=== PATIENT | male | born 1945 | race Caucasian/White ===

== ENCOUNTER 2022-10-25 16:03 | Outpatient (RCR) | payer MEDICARE, BC, SELFPAY ==
--- NOTE | 2022-10-25 17:36 | PT.OPE ---
PT Ruben Outpatient Eval PT [facility] Outpatient Eval Start: 10/25/22 16:22 Freq: Status: Active Protocol: Document 10/25/22 17:19 JUSTICE (Rec: 10/25/22 17:33 JUSTICE Desktop) E-signed By Pavan Duenas, PT, ATC Physical Therapy Outpatient Evaluation Insurance Information Insurance Name Medicare B Medical Diagnosis L knee OA Pre-op TKA Treating Diagnosis L knee pain, decreased strength, ROM and function. Referring MD Harding Subjective Subjective Scheduled for L TKA with Dr. Harding at [facility] on 11/01/22. 3-4 year history of L knee pain and stiffness. The past few months have been very debilitating creating pain and discomfort with most waking hours and activity. 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 Xrays identified advanced arthritis in the involved knee, significant worsening over the past few years. His functional ability is severely affected due to the pain and stiffness. He is anxious for the upcoming procedure and understands the healing-rehab schedule involved following the procedure. Primary Functional Limitations Walking Sustained standing squatting kneeling golfing Plan of Care Rehabilitation Potential Good Physical Therapy Goals 1. To demonstrate correct performance with walker use, stair ascent and descent and performance with his HEP for the TKA following his first visit in therapy. 2. To understand methods for pain control following the procedure using ice or the cooling machine, pain medication, rest and elevation . Coordination/Communication With Referral Source Frequency/Duration 1 visit prior to TKA 16 visits following TKA procedure. 1-2x per week for 12-16 weeks Patient Will Be Discharged From Therapy Independent w/HEP, Independently Progressing Evaluation Billing Untimed Code Treatment Minutes 30 PT Eval No Charge No Complexity Low Certification Information Initial Certification Date 10/25/22 Ending Certification Date 01/25/23 Provider Signature Shows Agreement With POC & Medical Necessity Physician Signature & Date Requested Please Sign/Date Here Physician Comment/Change : Physician NPI Number #
== END 2023-02-17 23:59 | disposition home or self-care (01) ==
PROVIDERS: PCP Surgery; Visit Provider Orthopaedic Surgery Sports Medicine
DX: M17.12 Unilateral primary osteoarthritis, left knee (principal); Z96.652 Presence of left artificial knee joint; M25.562 Pain in left knee; Z74.09 Other reduced mobility; Z51.89 Encounter for other specified aftercare
CPT/HCPCS: 97110; 97161

== ENCOUNTER 2023-07-11 10:24 | Day surgery (SDC) | payer MEDICARE, BC, SELFPAY ==
[2023-07-11] VITALS (22 sets, daily range): BP systolic 83–155; BP diastolic 55–127; PULSE 49–85; RESP 11–18; TEMP 35.7–36.8; O2SAT 91–100; BMI 31.2
--- OUTSIDE RECORDS SUMMARY | 2023-07-11 10:29 | XMS_ITS | Continuity of Care Document ---
Author Name Unknown Organization Z [facility] Address [address] [place] [address] Phone Care Team Providers Care Front End Software Engineer Name Role Phone No Information Unavailable Unavailable Procedures Procedure Date Office consultation, moderate 9 X-ray exam of neck spine2-3 views Advance Directives Directive Yes / No Effective Date File Name No Information Encounters Encounter Description Practice Location Reason(s) For Visit Diagnoses Date Provider Providers Copied on Encounter Z [facility], [address], [place], [address], tel:[phone] No Information Sep-0 9-200 9 No Information Office consultation, moderate Z [facility], [address], [place], [address], [place] tel:[phone] [facility] - [facility] No Information Sep-0 2-200 9 No Information Referring Provider: Montez Munoz, [facility] [address] [place] [address], [address]. tel:[phone] Family History Family Member Type Diagnosis Age At Onset No Information Payers Payer name Insurance type Covered libertarian ID Authorluis enrique lugo(s) [employer] [id number] Social History Type Description Quantity Date Captured Comments Sex Male Smoking Status No Information Chief Complaint And Reason For Visit No Information Reason For Referral Reason For Referral No Information History Of Present Illness Encounter Date Complaint History Of Prese nt Illness No Information Functional Status Date Functional Assessmen t No Information Instructions Date Instruction Additional Infor mation No Information Assessments Type Assessment Date No Information Patient Care Teams Name Effective Dates (start - stop) Status Members No Information
--- OUTSIDE RECORDS SUMMARY | 2023-07-11 10:29 | XMS_ITS | Continuity of Care Document ---
Author Name Unknown Organization Z [facility] Address [address] [place] [address] Phone Care Team Providers Care Package Dyer Name Role Phone No Information Unavailable Unavailable Procedures Procedure Date Office consultation, moderate 9 X-ray exam of neck spine2-3 views Advance Directives Directive Yes / No Effective Date File Name No Information Encounters Encounter Description Practice Location Reason(s) For Visit Diagnoses Date Provider Providers Copied on Encounter Z [facility], [address], [place], [address], tel:[phone] No Information Sep-0 9-200 9 No Information Office consultation, moderate Z [facility], [address], [place], [address], [place] tel:[phone] [facility] - [facility] No Information Sep-0 2-200 9 No Information Referring Provider: Montez Munoz, [facility] [address] [place] [address], [address]. tel:[phone] Family History Family Member Type Diagnosis Age At Onset No Information Payers Payer name Insurance type Covered republican ID Authorluis enrique lugo(s) [employer] [id number] Social History Type Description Quantity Date Captured [...]
--- NOTE | 2023-07-11 11:27 | W.PM.H&PU ---
History & Physical Update History & Physical Update H&P Reviewed and patient assessed: No changes noted
[2023-07-11] MEDS: ACETAMINOPHEN 500 MG TABLET 1000 MG PO ×2 (11:30→18:22)
[2023-07-11] MEDS: SODIUM CHLORIDE 0.9 % (FLUSH) 10 ML SYRINGE IVF (11:30)
[2023-07-11] MEDS: LACTATED RINGERS 1000 ML 1,000 ML 100 ML IV (11:30)
[2023-07-11] MEDS: OXYCODONE (CR) 10 MG TAB.ER.12H PO (11:30)
[2023-07-11] MEDS: MIDAZOLAM HCL 1 MG/ML inj IVP (12:20)
[2023-07-11] MEDS: fentaNYL 100 MCG/2 ML inj IVP (12:20)
--- NOTE | 2023-07-11 12:31 | SUR.PREOP ---
TIME?OUT:?1220 PT/RN/MDA?VERIFICATION?OF?SURGICAL?SITE,?PROCEDURE,?AND?CONSENT OBTAINED?PRIOR?TO?INVASIVE?PROCEDURE.
--- NOTE | 2023-07-11 12:33 | P.NB_ITS ---
Nerve Block Nerve Block Time Seen by Provider: 12:28 Date Seen: 07/11/23 Type of block requested by surgeon for post-operative analgesia: geniculars Side: left Time out performed: Yes Verification of patient name: Yes Verification of date of : Yes Site marking: site marked Name of person performing procedure: Stevie Continuous monitoring Was continuous monitoring of O2 sat, B/P, hospital monitor, recorded every 15 minutes?: Yes Procedure Checklist: sterile prep, needles and gloves Medications given in 5ml increments after negative aspiration: Ropivicaine %: 0.5 mL: 9 Needle gauge: 25 Patient tolerated procedure well: Yes Block Charges Block Charge (with Pro Fee): Genicular Nerve Block Use of Ultrasound Machine for Block: No
--- NOTE | 2023-07-11 12:33 | W.PM.NB ---
Nerve Block Nerve Block Time Seen by Provider: 12:28 Date Seen: 07/11/23 Type of block requested by surgeon for post-operative analgesia: adductor canal Side: left Time out performed: Yes Verification of patient name: Yes Verification of date of : Yes Site marking: site marked Name of person performing procedure: Stevie Continuous monitoring Was continuous monitoring of O2 sat, B/P, numerical control router operator, recorded every 15 minutes?: Yes Procedure Checklist: sterile prep, needles and gloves Ultrasound guided. Images saved: Yes Medications given in 5ml increments after negative aspiration: Ropivicaine %: 0.5 mL: 20 Needle gauge: 20 Decadron (mg): 10 Precedex (mcg): 25 Patient tolerated procedure well: Yes Additional comments: Needle noted adjacent to nerve Block Charges Block Charge (with Pro Fee): Femoral Nerve Use of Ultrasound Machine for Block: Yes- US Guidance/pain block
--- NOTE | 2023-07-11 12:34 | W.ANESCHARGE ---
Anesthesia Charges Start Date/Time Anesthesia Start Date: 07/11/23 Anesthesia Start Time: 12:33 Stop Date/Time Anesthesia Stop Date: 07/11/23 Anesthesia Stop Time: 15:20 Summary Extremes of Age - Over 70 or under 1: MDA
--- NOTE | 2023-07-11 12:50 | SUR.PREOP ---
Patients Sats 91% on admission, patient coughing with stuffed nose, lungs clear to auscultation bilaterally throughout. Sats increased to 95-97% with coughing and deep breathing. Notified anesthesia of patients status, patient ok to proceed with nerve block and surgery.
--- NOTE | 2023-07-11 14:34 | PM.ORPRC ---
Procedure Note Date of procedure: 07/11/23 Procedure: PREOPERATIVE DIAGNOSIS: 1. Right knee osteoarthritis, primary, severe POSTOPERATIVE DIAGNOSIS: 1. Right knee osteoarthritis, primary, severe PROCEDURE: 1. Right total knee arthroplasty SURGEON: Fortunato Lamb MD. VISITOR SERVICES ASSOCIATE: Sathish Meraz PA-C - Of note, a skilled registered dental assistant rda was critical for this case to aid in patient positioning, tissue retraction, limb manipulation/positioning, and closure. ANESTHESIA: Spinal anesthetic IMPLANTS: DePuy J&J all cemented TKA - Attune PS femur size 8, size 7 tibia, 6 mm poly spacer, 41mm patella TOURNIQUET: 100 minutes at 300 torr EBL: 50 ml COMPLICATIONS: None evident INDICATIONS: The patient is a pleasant 78-year-old male who has experienced severe right knee pain and difficulty bearing weight. Workup included x-rays which revealed severe osteoarthrosis in the knee. Given the deformity, the dysfunction, and the pain, as well as the failure of nonoperative management, recommendation was made for surgery. FINDINGS: Full-thickness chondral loss diffusely throughout the medial and patellofemoral compartments. To a lesser degree lateral compartment. Moderate effusion upon entering the joint. DESCRIPTION OF PROCEDURE: Following a thorough discussion of risks, benefits, and alternatives consent was obtained and the right knee was marked. The patient was brought to the operating room and placed supine on the operating table. Induction of anesthesia was undertaken. 2 g IV Ancef and 1 g tranexamic acid was administered within 1 hr of incision preoperatively. Proper time-out was performed identifying proper patient, site, procedure. The operative extremity was prepped and draped in the appropriate sterile fashion using ChloraPrep after the patient was positioned supine with all bony prominences well padded. A longitudinal, anterior, midline skin incision was made starting approximately 3cm proximal to the superior pole of the patella and advanced distal to the tibial tubercle. A median parapatellar arthrotomy was created. A medial subperiosteal sleeve was created with knife, adams elevator and curved osteotome. The retropatellar fatpad was resected and the synovium in the suprapatellar pouch excised to visualize the anterior femoral cortex. Femoral preparation was performed via an intramedullary guide. Step drill allowed access into the femoral canal. The distal cutting guide was placed with 5? of valgus and 11 mm cut on the distal femur. Femur was sized using a posterior referencing guide in 3? of external rotation. This found have a best fit with the sizing noted above. The 4 in 1 cutting block was then placed, and the distal femur shaped accordingly. The box cut was then created and the trial implant inserted to confirm appropriate fit. We turned our attention to the proximal tibia. Extramedullary guide was utilized for cutting with the goal of being 90 degree cut from the mechanical axis of the tibia in the varus/valgus plane utilizing tibial crest as the primary alignment. Initially a 2 mm resection was performed from the medial tibial plateau. Ultimately, balancing was achieved in both flexion and extension in both varus and valgus. The knee was able to achieve full extension as well comfortably. The patella was initially measured and found have a thickness of 27 mm. It was resected back to approximately 17 mm. It was sized to be a best fit with as noted above. This was drilled, trial placed. All trials were placed and found to have an excellent stability and balance. At this stage, trial implants were removed, the knee was thoroughly irrigated with normal saline, and the cement was mixed. After irrigation, the knee was thoroughly dried, and cement placed, with the real tibial and femoral implants placed along with the patella. Trial poly spacer was placed and confirmed to have excellent range of motion and full extension, and the real poly spacer opened and inserted. All extra cement was removed, and a 3 min Betadine soak performed. Finally, a final irrigation round with normal saline was performed. Closure performed with 0 Vicryl and #0 Stratafix for the quad tendon/retinaculum. 2-0 Vicryl for the subcutaneous and 4-0 Stratafix for subcuticular closure. Dressings were applied and the patient was awoken from anesthesia after the tourniquet deflated and transferred the PACU in stable condition. A skilled registered dental assistant rda was critical for this case to aid in patient positioning, tissue retraction, bone exposure, limb manipulation/positioning, patient safety, and closure. PLAN: 1. Weight bear as tolerated operative extremity. 2. 23 hr perioperative antibiotics. 3. Ice. 4. PT/OT consults for ambulation assistance/mobility education. 5. Social work consult for discharge planning. 6. DVT prophylaxis with at SCDs, Elier Hose, and aspirin twice daily.
--- NOTE | 2023-07-11 15:20 | CRLHL7_ITS ---
For Patients: As a result of the Cures Act, medical imaging exams and procedure reports are released immediately into your electronic medical record. You may view this report before your referring provider. If you have questions, please contact your health care provider. Indication: post op total knee Technique: Two views left knee Findings/Impression: Hardware from a left total knee arthroplasty is in satisfactory position. Bone alignment is normal. No sign of acute fracture. Postop changes are within normal limits. Dictated by Feliz Menchaca MD @ 07/12/2023 10:17:10 AM (Electronically Signed)
--- NOTE | 2023-07-11 15:25 | W.ANESCHARGE ---
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
--- NOTE | 2023-07-11 15:59 | SUR.PHASEI ---
patient met discharge criteria per anesthesia
--- NOTE | 2023-07-11 16:09 | PM.IMCN1 ---
Date of Consult Consult date: 07/11/23 Primary Care Provider: Sathish Segura MD Consult Narrative Narrative: HOSPITALIST CONSULT PROCEDURE: 1. Right total knee arthroplasty SURGEON: Fortunato Lamb MD. EBL: 50 ml COMPLICATIONS: None evident The hospital medicine team was asked by the orthopedic surgery team to manage the patient's hypertension, GERD, MANUEL, significant BPH, anxiety and depression. There have been no perioperative complications. Updated and reviewed the active medical problems, past medical history, past surgical history, social history, allergies and medications in our electronic EMR. PHYSICAL EXAM: CODE STATUS: FULL CODE CONSTITUTIONAL: Conversive, good historian. A/O. Knows setting and context. VITAL SIGNS: see record. HEENT: Normocephalic, atraumatic. PERRL, EOMI, conjunctivae pink, no scleral icterus. Ears and nose externally normal. Pharynx normal. NECK: No JVD. No carotid bruit, no thyromegaly, no adenopathy. CHEST: Clear to auscultation bilaterally HEART: S1 and S2 normal. ABDOMEN: Flat, soft, nontender. Normal bowel sounds. Moderately obese. EXTREMITIES: No edema. MUSCULOSKELETAL: Left knee surgical dressing intact. Full neuro intact. NEURO: Cranial nerves intact. Mentation normal. Normal affect. SKIN: No rashes, petechiae, concerning changes PSYCHIATRIC: Mentation normal. INVESTIGATIONS: EMR Reviewed; Pre-OP Reviewed DISPOSITION: DVT: Agree with Ortho team decision GI: PO intake [facility] Medical History (Updated 07/11/23 @ 17:32 by Demi Herbert MD) Neuropathy ?G62.9 - Polyneuropathy, unspecified (ICD-10) Hyperlipidemia ?E78.5 - Hyperlipidemia, unspecified (ICD-10) BPH (benign prostatic hyperplasia) ?N40.0 - Benign prostatic hyperplasia without lower urinary tract symptoms (ICD-10) Depression with anxiety ?F41.8 - Other specified anxiety disorders (ICD-10) H/O malignant neoplasm of skin ?Z85.828 - Personal history of other malignant neoplasm of skin (ICD-10) History of GI bleed ?Z87.19 - Personal history of other diseases of the digestive system (ICD-10) 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 ?M25.869 - Other specified joint disorders, unspecified knee (ICD-10) ?Z96.659 - Presence of unspecified artificial knee joint (ICD-10) Olecranon bursitis of right elbow ?M70.21 - Olecranon bursitis, right elbow (ICD-10) Osteoarthritis of carpometacarpal (CMC) joint of both thumbs ?M18.0 - Bilateral primary osteoarthritis of first carpometacarpal joints (ICD-10) Trigger finger, left middle finger ?M65.332 - Trigger finger, left middle finger (ICD-10) Acute perichondritis of left external ear ?H61.012 - Acute perichondritis of left external ear (ICD-10) Abscess of right lower extremity ?L02.415 - Cutaneous abscess of right lower limb (ICD-10) MRSA (methicillin resistant staph aureus) culture positive ?Z22.322 - Carrier or suspected carrier of Methicillin resistant Staphylococcus aureus (ICD-10) Diverticulitis ?K57.92 - Diverticulitis of intestine, part unspecified, without perforation or abscess without bleeding (ICD-10) Cellulitis ?L03.90 - Cellulitis, unspecified (ICD-10) GERD (gastroesophageal reflux disease) ?K21.9 - Gastro-esophageal reflux disease without esophagitis (ICD-10) Hypertension ?I10 - Essential (primary) hypertension (ICD-10) Sleep apnea ?G47.30 - Sleep apnea, unspecified (ICD-10) Surgical History (Updated 07/11/23 @ 17:34 by Demi Herbert MD) Status post evacuation of hematoma ?Z98.890 - Other specified postprocedural states (ICD-10) History of lumbar laminectomy ?Z98.890 - Other specified postprocedural states (ICD-10) Status post left knee replacement ?Z96.652 - Presence of left artificial knee joint (ICD-10) H/O hernia repair ?Z98.890 - Other specified postprocedural states (ICD-10) ?Z87.19 - Personal history of other diseases of the digestive system (ICD-10) History of appendectomy ?Z90.49 - Acquired absence of other specified parts of digestive tract (ICD-10) S/P right knee arthroscopy (07/07/06) ?Z98.890 - Other specified postprocedural states (ICD-10) History of carpal tunnel surgery of left wrist (05/22/09) ?Z98.890 - Other specified postprocedural states (ICD-10) S/P arthroscopy of right shoulder (06/23/11) ?Z98.890 - Other specified postprocedural states (ICD-10) Status post total right knee replacement (06/27/13) ?Z96.651 - Presence of right artificial knee joint (ICD-10) History of carpal tunnel surgery of right wrist (11/07/13) ?Z98.890 - Other specified postprocedural states (ICD-10) Social History What is your current living situation?: I presently have a place to live Problems where you live: no known problems In the past 12 months, utilities in danger of being shut off: no In past 12 months, lack of transportation kept you from medical appts, meetings, work, or getting things needed for daily living: no In the past 12 mos, have been you worried that your food would run out before you had money to buy more?: never true In the past 12 mos, the food you bought just didn't last and you didn't have money to buy more?: never true Highest level of school completed/degree received: high school graduate Smoking Status: Never smoker Do you use any of these nicotine containing products: None Second hand tobacco smoke exposure: No How often do you have a drink containing alcohol: 4 or more times a week Alcohol type: wine How many standard drinks containing alcohol do you have on a typical day: 1 or 2 How often do you have six or more drinks on one occasion: Never AUDIT-C Alcohol total score: 4 Non-prescribed substance use: denies use Caffeine: Yes (coffee) How often does anyone, including family, friends and others, physically hurt you: never How often does anyone, including family, friends and others, insult or talk down to you: never How often does anyone, including family, friends and others, threaten you with harm: never How often does anyone, including family, friends and others, scream or curse at you: never service: Yes Meds Home Medications and Allergies Home Medications Medication Instructions Recorded Confirmed Type albuterol sulfate 90 mcg/actuation 2 inh inhalation Q4H PRN 06/10/22 07/11/23 History aerosol inhaler atorvastatin 10 mg tablet 10 mg PO HS 06/10/22 07/11/23 History buspirone 10 mg tablet 20 mg PO BID 06/10/22 07/11/23 History citalopram 20 mg tablet 20 mg PO DAILY 06/10/22 07/11/23 History finasteride 5 mg tablet 5 mg PO DAILY 06/10/22 07/11/23 History gabapentin 100 mg capsule 200 mg PO BID 06/10/22 07/11/23 History losartan 50 mg tablet 50 mg PO DAILY 06/10/22 07/11/23 History omeprazole 20 mg capsule,delayed 20 mg PO DAILY 06/10/22 07/11/23 History release tamsulosin 0.4 mg capsule 0.8 mg PO DAILY 06/10/22 07/11/23 History ferrous sulfate 324 mg (65 mg 324 mg PO DAILY 10/21/22 07/11/23 History iron) tablet,delayed release propranolol 20 mg tablet 20 mg PO BID PRN 10/21/22 07/11/23 History acetaminophen 650 mg 1,300 mg PO Q8H PRN 07/11/23 07/11/23 History tablet,extended release cyanocobalamin (vitamin B-12) 1,000 mcg PO DAILY 07/11/23 07/11/23 History 1,000 mcg tablet diclofenac sodium 1 % topical gel 2 g topical QID PRN 07/11/23 07/11/23 History zolpidem 5 mg tablet 5 mg PO HS PRN 07/11/23 07/11/23 History Allergies Allergy/AdvReac Type Severity Reaction Status Date / Time No Known Drug Allergies Allergy Verified 07/11/23 10:52 Exam Const: Vital Signs, click to edit/add: Vital Signs - 24 hr 07/11/23 11:24 07/11/23 12:20 07/11/23 12:25 Temperature 97.9 F Pulse Rate 60 63 54 L Respiratory Rate 16 16 16 Blood Pressure 131/72 147/94 H 122/66 Pulse Oximetry 93 98 92 Oxygen Delivery Me thod Room Air Nasal Cannula Nasal Cannula Oxygen Flow Rate 5 5 07/11/23 12:30 07/11/23 15:16 07/11/23 15:20 Temperature 98.3 F 98.3 F Pulse Rate 52 L 55 L 53 L Respiratory Rate 16 12 11 L Blood Pressure 119/68 89/55 L 83/57 L Pulse Oximetry 92 91 91 Oxygen Delivery Me thod Nasal Cannula Room Air Room Air Oxygen Flow Rate 5 07/11/23 15:25 07/11/23 15:30 07/11/23 15:35 Temperature 98.3 F 98.3 F 98.3 F Pulse Rate 57 L 60 49 L Respiratory Rate 12 16 12 Blood Pressure 101/71 124/75 120/62 Pulse Oximetry 91 91 94 Oxygen Delivery Me thod Room Air Room Air Room Air Oxygen Flow Rate 07/11/23 15:40 07/11/23 15:45 Temperature 98.3 F 98.3 F Pulse Rate 56 L 58 L Respiratory Rate 18 14 Blood Pressure 120/73 135/82 Pulse Oximetry 93 92 Oxygen Delivery Me thod Room Air Room Air Oxygen Flow Rate Assessment and Plan Assessment and plan (1) Status post left knee replacement: Problem comment: Jul 2023/[facility] medicine team is happy to follow this patient through to discharge. Agree with his VTE plan. I will hold his Ambien, losartan, propranolol. I will continue his gabapentin and give him doses of his BPH and anxiety/depression meds this evening. I expect and uneventful postoperative course. Status: Acute (2) Hypertension: Problem comment: -currently takes Losartan -hx of amlodipine Status: Acute (3) Sleep apnea: Problem comment: -compliant with CPAP Status: Acute (4) BPH (benign prostatic hyperplasia): Problem comment: -Proscar and flomax Status: Acute (5) Depression with anxiety: Problem comment: -BuSpar, Celexa, Ambien Status: Acute (6) History of GI bleed: Problem comment: 2020 Status: Acute (7) MRSA (methicillin resistant staph aureus) culture positive: Status: Acute (8) GERD (gastroesophageal reflux disease): Problem comment: -daily PPI Status: Acute (9) Neuropathy: Problem comment: -gabapentin scheduled Status: Acute (10) Hyperlipidemia: Problem comment: -Lipitor Status: Acute
[2023-07-11] MEDS: HYDROmorphone 0.5 mg/0.5 ml inj IVP (17:16)
[2023-07-11] MEDS: FINASTERIDE 5 MG TABLET PO (18:22)
[2023-07-11] MEDS: CITALOPRAM HYDROBROMIDE 20 MG TABLET PO (18:22)
[2023-07-11] MEDS: TAMSULOSIN HCL 0.4 MG CAPSULE 0.8 MG PO (18:22)
[2023-07-11] MEDS: CEFAZOLIN 2 GM in 0.9 % SODIUM CHLORIDE Mini-bag 100 ML IVPB (18:23)
[2023-07-11] MEDS: GABAPENTIN 100 MG CAPSULE 200 MG PO (20:31)
[2023-07-11] MEDS: BUSPIRONE 10 MG TABLET 20 MG PO (20:31)
[2023-07-11] MEDS: SENNOSIDES 1 TAB TABLET 2 TAB PO (20:31)
[2023-07-11] MEDS: ATORVASTATIN 10 MG TABLET PO (20:31)
[2023-07-11] MEDS: ASPIRIN 81 MG TABLET EC PO (20:32)
[2023-07-11] MEDS: OXYCODONE 5 MG TABLET PO (20:45)
--- NOTE | 2023-07-11 23:51 | PC.NURSE ---
Shift Note [id number]: Pt friendly and cooperative. VSS, slightly hypertensive. LS COA and afebrile. Surgical dressing C,D,&I with cryocuff in place. Pt c/o of moderate 5/10 pain and 5mg Oxycodone given PRN. Moves well with assist x1 with walker and GB. Plans to discharge home with his tomorrow.
[2023-07-12] VITALS: BP 129/72; PULSE 61; RESP 20; TEMP 36.6; O2SAT 94
[2023-07-12] MEDS: ACETAMINOPHEN 500 MG TABLET 1000 MG PO ×2 (00:18→06:45)
[2023-07-12] MEDS: LORazepam 0.5 MG TABLET PO (00:19)
[2023-07-12] MEDS: OXYCODONE 5 MG TABLET PO ×4 (00:20→08:52)
[2023-07-12] MEDS: CEFAZOLIN 2 GM in 0.9 % SODIUM CHLORIDE Mini-bag 100 ML IVPB (03:41)
[2023-07-12 04:00] VITALS: BP 99/75; PULSE 66; RESP 18; TEMP 36.8; O2SAT 95
--- NOTE | 2023-07-12 04:25 | PC.NURSE ---
Pt is s/p left knee surgery. His vitals are stable his pain is well controlled with oxycodone. Knee dsg is CDI. Slight swelling noted to knee. voiding without issues.
[2023-07-12 06:39] LABS: Hematocrit 39.1 % (37.0-53.0); Immature Granulocytes Pct Auto 0.3 %; Lymphocytes Percent Auto 7.6 % (20-44); Mean Corpuscular HGB Conc 33 gm/dL (32-36); Mean Corpuscular Hemoglobin 32 pg (26-34); Mean Corpuscular Volume 95 fL (80-100); Monocytes Percent Auto 5.4 % (0.0-11.0); Neutrophils Percent Auto 86.7 % (42.0-72.0); Platelet Count* 211 K/uL (140-440); RDW Coefficient of Variation % 11.6 % (11.5-15.5); Red Blood Count 4.11 m/uL (4.30-5.90); White Blood Count* 14.36 K/uL (4.50-11.00)
[2023-07-12 06:42] LABS: Slide Review Reflex No
[2023-07-12] MEDS: OMEPRAZOLE 20 MG CAPSULE DR PO (06:45)
[2023-07-12 06:51] LABS: Potassium* 4.4 mmol/L (3.6-5.1); Sodium* 136 mmol/L (135-149)
[2023-07-12 06:54] LABS: Blood Urea Nitrogen* 21 mg/dL (7-30); Creatinine* 1.2 mg/dL (0.5-1.5); Est. Creatinine Clearance* 49.92; Estimated Glomerular Filt Rate 62 ml/min
[2023-07-12 08:17] VITALS: BP 103/64; PULSE 81; RESP 18; TEMP 36.6; O2SAT 95
[2023-07-12] MEDS: GABAPENTIN 100 MG CAPSULE 200 MG PO (08:51)
[2023-07-12] MEDS: BUSPIRONE 10 MG TABLET 20 MG PO (08:51)
[2023-07-12] MEDS: TAMSULOSIN HCL 0.4 MG CAPSULE 0.8 MG PO (08:51)
[2023-07-12] MEDS: CITALOPRAM HYDROBROMIDE 20 MG TABLET PO (08:52)
[2023-07-12] MEDS: ASPIRIN 81 MG TABLET EC PO (08:52)
[2023-07-12] MEDS: SENNOSIDES 1 TAB TABLET 2 TAB PO (08:52)
[2023-07-12] MEDS: FINASTERIDE 5 MG TABLET PO (08:52)
[2023-07-12] MEDS: FERROUS SULFATE 325 MG TABLET PO (08:52)
--- NOTE | 2023-07-12 10:34 | PM.ORPN ---
Subjective Subjective Date Seen: 07/12/23 Principal diagnosis: Status postop day 1 left total knee arthroplasty Interval history: Patient reports doing well. No acute events over night. Around 1 in the morning, experienced more intense pain throughout the left knee, which has since resolved. He knows to stay on top of his pain. Pain managed with scheduled and PRN medications, ice. DVT prophylaxis: 81 mg aspirin by mouth twice daily, bilateral knee high Elier stockings, SCDs, walking. Denies fevers, chills, aches, N/V, CP, SOB/CARO, or lightheadedness. States that he feels a little woozy from the narcotic medication. Ortho Exam Narrative Exam Narrative: -Patient appears comfortable; no apparent acute distress -Alert and oriented times 3 -Operative knee mildly swollen; soft tissues supple; no ecchymosis; no erythematous streaking Warmth appropriate -Surgical dressing clean, dry, intact; no drainage -Bilateral calfs soft; no significant swelling, edema, tenderness, erythema, discoloration, warmth, or palpable cords -2+ DP/PT pulses, intact dermatomes and myotomes distally (5/5 strength) - very strong straight leg raise Const Vital Signs, click to edit/add: Vital Signs - 24 hr 07/11/23 11:24 07/11/23 12:20 07/11/23 12:25 Temperature 97.9 F Pulse Rate 60 63 54 L Pulse Rate [Right Pulse Oximeter] Respiratory Rate 16 16 16 Blood Pressure 131/72 147/94 H 122/66 Blood Pressure [Right Arm] Pulse Oximetry 93 98 92 Oxygen Delivery Method Room Air Nasal Cannula Nasal Cannula Oxygen Flow Rate 5 5 07/11/23 12:30 07/11/23 15:16 07/11/23 15:20 Temperature 98.3 F 98.3 F Pulse Rate 52 L 55 L 53 L Pulse Rate [Right Pulse Oximeter] Respiratory Rate 16 12 11 L Blood Pressure 119/68 89/55 L 83/57 L Blood Pressure [Right Arm] Pulse Oximetry 92 91 91 Oxygen Delivery Method Nasal Cannula Room Air Room Air Oxygen Flow Rate 5 07/11/23 15:25 07/11/23 15:30 07/11/23 15:35 Temperature 98.3 F 98.3 F 98.3 F Pulse Rate 57 L 60 49 L Pulse Rate [Right Pulse Oximeter] Respiratory Rate 12 16 12 Blood Pressure 101/71 124/75 120/62 Blood Pressure [Right Arm] Pulse Oximetry 91 91 94 Oxygen Delivery Method Room Air Room Air Room Air Oxygen Flow Rate 07/11/23 15:40 07/11/23 15:45 07/11/23 16:00 Temperature 98.3 F 98.3 F 96.3 F L Pulse Rate 56 L 58 L 59 L Pulse Rate [Right Pulse Oximeter] Respiratory Rate 18 14 16 Blood Pressure 120/73 135/82 Blood Pressure [Right Arm] 126/73 Pulse Oximetry 93 92 Oxygen Delivery Method Room Air Room Air Room Air Oxygen Flow Rate 07/11/23 16:15 07/11/23 16:30 07/11/23 16:45 Temperature 96.9 F L Pulse Rate Pulse Rate [Right Pulse Oximeter] 55 L 62 69 Respiratory Rate 16 16 16 Blood Pressure Blood Pressure [Right Arm] 136/78 154/127 H 151/101 H Pulse Oximetry 95 92 95 Oxygen Delivery Method Room Air Room Air Room Air Oxygen Flow Rate 07/11/23 17:00 07/11/23 17:30 07/11/23 18:00 Temperature 96.8 F L 97 F L Pulse Rate Pulse Rate [Right Pulse Oximeter] 58 L 56 L 85 Respiratory Rate 16 16 16 Blood Pressure Blood Pressure [Right Arm] 155/78 H 155/88 H 141/83 H Pulse Oximetry 100 98 95 Oxygen Delivery Method Room Air Room Air Room Air Oxygen Flow Rate 07/11/23 19:00 07/11/23 20:00 07/11/23 21:00 Temperature Pulse Rate Pulse Rate [Right Pulse Oximeter] 81 78 84 Respiratory Rate 16 16 16 Blood Pressure Blood Pressure [Right Arm] 125/73 130/70 124/72 Pulse Oximetry 93 94 93 Oxygen Delivery Method Room Air Room Air Room Air Oxygen Flow Rate 07/11/23 23:00 07/12/23 00:00 07/12/23 04:00 Temperature 97.8 F 98.2 F Pulse Rate Pulse Rate [Right Pulse Oximeter] 61 66 Respiratory Rate 20 18 Blood Pressure Blood Pressure [Right Arm] 129/72 99/75 Pulse Oximetry 95 94 95 Oxygen Delivery Method Room Air CPAP CPAP Oxygen Flow Rate 07/12/23 08:17 07/12/23 08:17 Temperature 97.9 F Pulse Rate Pulse Rate [Right Pulse Oximeter] 81 Respiratory Rate 18 Blood Pressure Blood Pressure [Right Arm] 103/64 Pulse Oximetry 95 95 Oxygen Delivery Method Room Air Oxygen Flow Rate Assessment and Plan Assessment and plan (1) Status post left knee replacement: Problem details: Jul 2023/[facility] medicine team is happy to follow this patient through to discharge. Agree with his VTE plan. I will hold his Ambien, losartan, propranolol. I will continue his gabapentin and give him doses of his BPH and anxiety/depression meds this evening. I expect and uneventful postoperative course. Status: Acute (2) Hypertension: Problem details: -currently takes Losartan -hx of amlodipine Status: Acute (3) Sleep apnea: Problem details: -compliant with CPAP Status: Acute (4) BPH (benign prostatic hyperplasia): Problem details: -Proscar and flomax Status: Acute (5) Depression with anxiety: Problem details: -BuSpar, Celexa, Ambien Status: Acute (6) History of GI bleed: Problem details: 2020 Status: Acute (7) MRSA (methicillin resistant staph aureus) culture positive: Status: Acute (8) GERD (gastroesophageal reflux disease): Problem details: -daily PPI Status: Acute (9) Neuropathy: Problem details: -gabapentin scheduled Status: Acute (10) Hyperlipidemia: Problem details: -Lipitor Status: Acute Plan - Complete 23 hour perioperative antibiotics. - PT/OT consult for education and assistance. - Social work consult for discharge planning - Prescribed analgesics as needed - DVT prophylaxis: 81 mg aspirin by mouth twice daily, bilateral knee high Elier Hose stockings and SCDs - Anticipation is for discharge to home with spouse, today, 07/12/2023 if the patient remains medically stable, pain is controlled, and they are safe with mobilization.
== END 2023-07-12 11:26 | disposition home or self-care (01) ==
LOC: OR 10:27 → MEDSURG 10:32
PROVIDERS: PCP Surgery; Visit Provider Orthopaedic Surgery Sports Medicine
PROC: (CPT 27447; principal; 2023-07-11 12:30)
DX: M17.12 Unilateral primary osteoarthritis, left knee (principal); G89.18 Other acute postprocedural pain; G47.33 Obstructive sleep apnea (adult) (pediatric); I10 Essential (primary) hypertension; F41.8 Other specified anxiety disorders; N40.0 Benign prostatic hyperplasia without lower urinary tract symptoms; Z22.322 Carrier or suspected carrier of Methicillin resistant Staphylococcus aureus; K21.9 Gastro-esophageal reflux disease without esophagitis
CPT/HCPCS: 27447; 01402; 36415; 64447; 64454; 73560; 76942; 82565; 84132; 84295; 84520; 85025; 94761; 97110; 97116; 97161; 97165; 97530; 97535; 99100; A9270; C1776; J0690; J1100; J1170; J2250; J2405; J2704; J2795; J3010; J7120

== ENCOUNTER 2023-09-01 11:30 | Outpatient (RCR) | payer MEDICARE, BC, SELFPAY ==
--- NOTE | 2023-07-13 09:30 | PT.OPEX ---
PT [place] Outpatient Eval PT [facility] Outpatient Eval Start: 07/12/23 11:21 Freq: Status: Active Protocol: Document 07/13/23 07:23 NEREIDA (Rec: 07/13/23 07:30 NEREIDA [id number]) E-signed By Elena Magdaleno, PT Physical Therapy Outpatient Evaluation Insurance Information Recert Due Date 10/07/23 Insurance Name Medicare B Medical Diagnosis Lt TKA Treating Diagnosis Lt knee pain, edema, reduced WB Lt LE, mm weakness Lt LE secondary to Lt TKA completed 07/11/[address] Fortunato Lamb Subjective Subjective Don reports pain meds are not really working very well. Slept very poorly last night and pain is 8.5 /10 even with near constant use of ice. Pain primarily at the top of his knee but up into front and side of hip and into buttock too. Denies problems with home ex, did them yesterday but not yet this morning. Walking every couple of hours, but just for maybe 5 min around the house. Lives in a rambler with his , no real stairs as an issue. Using walker, but feels like he doesn't really need it (advised to cont with walker). Appetite is back to normal already, eager to progress with goals and maybe start a walking program. 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 Pain Comments moderate Date of Last Physician Visit 07/11/23 Date of Surgery (If applicable) 07/11/23 Current Work Status Retired Preferred Name Don Precautions Treatment Precautions/Contraindications GERD, Hypertension, Sleep Apnea, Depression/Anxiety, Neuropathy, Rt TKA 06/27/13, Rt shoulder Scope 06/23/11 Weight Bearing Status Weight Bear as Tolerated Therapy Limitations/Systems Review Not Limited Assessment Assessment/Impression 78 yo male presents today post /op status Lt TKA completed . He arrived via IND ambulation with use of rolling walker. Reduced step stride length and reduced heel to toe gait. Mid pat girth measures: Rt non-involved 41 cm / Lt involved 43.8 cm (bandage still in place) . AAROM Rt non -involved 0-0-128 / Lt involved 5-90. Sit to stand with use of colin UE on chair arms and reduced WB into Lt LE by approximately 50%. SLS Rt 7 seconds / Lt unable. Bandage in place along incision, visible skin has good coloration and temperature, no signs of infection or deficits. He is very tender at superior aspect of incision and hypertonic at full quad/hip flex and ITB, upper gastroc and mid to distal hamstring. Tolerated gentle patellar mobs well. IND in bed mobility. He will benefit from continued skilled physical therapy to provide education in gait and balance skills, progressive stretch/ strength HEP, STM/mobs. Thank you for this referral. Plan of Care Rehabilitation Potential Good Physical Therapy Goals In 4-6 visits, Don will be able to report: 1. Increased walking tolerance from 5 min to at least 30 min . 2. Symmetric stride length and heel to toe gait with use of least necessary adaptive device 3. Reduced edema by 2 cm 4. Increased AROM 0-0-110 In 10-12 visits, Don will be able to report: 1. IND in entire HEP with emphasis on reps, pace and alignment 2. Increased ambulation to at least 4 hours without use of any AD, symmetric gait 3. A/D flight of 10 steps with reciprocal gait pattern 4. Return to PLOF with volunteering and driving 5. His personal goal is to start a walking program and return to Polka/dancing with his . Coordination/Communication With Referral Source Treatment Plan/Direct Interventions Ice/Cold/Vasopneumatic,Joint Mobilization,Manual Therapy, Neuromuscular Re-ed,Self-Care/ Home Management,Therapeutic Activities,Therapeutic Exercises Frequency/Duration 2X/Wk for 12 weeks Patient Will Be Discharged From Therapy Completion of LTG(s),Skills Plateau,Independent w/HEP, Independently Progressing Evaluation Billing Untimed Code Treatment Minutes 25 Complexity Moderate Certification Information Initial Certification Date 07/13/23 Ending Certification Date 10/07/23 Provider Signature Shows Agreement With POC & Medical Necessity Physician Signature & Date Requested Please Sign/Date Here Physician Comment/Change : Physician NPI Number #
== END 2023-09-02 14:16 | disposition home or self-care (01) ==
PROVIDERS: PCP Surgery; Visit Provider Orthopaedic Surgery Sports Medicine
DX: M17.12 Unilateral primary osteoarthritis, left knee (principal); Z96.652 Presence of left artificial knee joint; M25.562 Pain in left knee; R60.9 Edema, unspecified; R29.898 Other symptoms and signs involving the musculoskeletal system; Z51.89 Encounter for other specified aftercare
CPT/HCPCS: 97110; 97140; 97162

== ENCOUNTER 2024-07-08 16:32 | Emergency (ER) | payer MEDICARE, BC, SELFPAY ==
[2024-07-08 16:47] VITALS: BP 142/86; PULSE 99; RESP 16; TEMP 37.1; O2SAT 94; BMI 30.1
--- NOTE | 2024-07-08 16:51 | CRLHL7_ITS ---
For Patients: As a result of the Century Cures Act, medical imaging exams and procedure reports are released immediately into your electronic medical record. You may view this report before your referring provider. If you have questions, please contact your health care provider. INDICATION: epigastric pain, diarrhea. TECHNIQUE: CT abdomen and pelvis acquired with 103 cc Isovue 370 IV contrast. COMPARISON: None. FINDINGS: Lower chest: Unremarkable. Liver: Unremarkable. Normal in size and attenuation. No suspicious masses. Gallbladder and bile ducts: Unremarkable. No stones or inflammation. No biliary dilatation. Pancreas: Unremarkable. No mass or inflammation. Spleen: Unremarkable. Normal in size. No masses. Adrenal glands: Unremarkable. No nodules. Kidneys: Unremarkable. No suspicious masses, stones, or hydronephrosis. GI tract: There is fluid extending throughout the small and large bowel to the rectum, indicating a diarrheal state. Bowel is normal in caliber without evidence of obstruction. Normal appendix. Vasculature: Abdominal aorta is normal in caliber. Mesenteric arteries are patent. Lymph nodes: No lymphadenopathy. Peritoneum/Abdominal Wall: Moderate fat containing left inguinal hernia. No sign of mass or infiltration. No free air or significant free fluid. Pelvis: Unremarkable. Bones: Unremarkable for age. IMPRESSION: There is fluid extending throughout the small and large bowel to the rectum, indicating a diarrheal state. This likely reflects enterocolitis, which could be infectious or inflammatory in etiology. Please note that all CT scans at this facility use dose modulation, iterative reconstruction, and/or weight-based dosing when appropriate to reduce radiation dose to as low as reasonably achievable. Dictated by Reji Lau MD @ 07/08/2024 6:46:48 PM (Electronically Signed)
[2024-07-08] MEDS: ONDANSETRON 2 MG/ML inj 4 MG IVP (17:12)
--- NOTE | 2024-07-08 17:12 | ED_ITS ---
HPI - General Adult General Date Seen: 07/08/24 Chief complaint: Diarrhea Stated complaint: pippa Gregory Time Seen by Provider: 07/08/24 16:38 Source: patient Mode of arrival: ambulatory Limitations: no limitations History of Present Illness HPI narrative: Patient is an 79-year-old here with some epigastric predominantly abdominal pain as well as diarrhea which he says is been ongoing since early this morning after having a normal bowel movement. He denies bloody stools or black stools. He has had a lot of nausea but no vomiting. Denies prior history of pancreatitis or gallbladder disease. He is status post appendectomy and has had surgery related to diverticular disease. He also had a GI bleed which was fairly significant several years ago requiring a 9 unit transfusion, but he says that no source was ever identified. He has not had fevers today. No ill contacts or travel. He does not smoke, drinks socially. Here today with his . Related Data Home Medications ?Medication ?Instructions ?Recorded ?Confirmed albuterol sulfate 90 mcg/actuation 2 inh inhalation Q4H PRN 06/10/22 01/03/24 aerosol inhaler atorvastatin 10 mg tablet 10 mg PO HS 06/10/22 01/03/24 buspirone 10 mg tablet 20 mg PO BID 06/10/22 01/03/24 citalopram 20 mg tablet 20 mg PO DAILY 06/10/22 01/03/24 finasteride 5 mg tablet 5 mg PO DAILY 06/10/22 01/03/24 gabapentin 100 mg capsule 200 mg PO BID 06/10/22 01/03/24 losartan 50 mg tablet 50 mg PO DAILY 06/10/22 01/03/24 omeprazole 20 mg capsule,delayed 20 mg PO DAILY 06/10/22 01/03/24 release tamsulosin 0.4 mg capsule 0.8 mg PO DAILY 06/10/22 01/03/24 ferrous sulfate 324 mg (65 mg 324 mg PO DAILY 10/21/22 01/03/24 iron) tablet,delayed release propranolol 20 mg tablet 20 mg PO BID PRN 10/21/22 01/03/24 acetaminophen 650 mg 1,300 mg PO Q8H PRN 07/11/23 01/03/24 tablet,extended release cyanocobalamin (vitamin B-12) 1,000 mcg PO DAILY 07/11/23 01/03/24 1,000 mcg tablet zolpidem 5 mg tablet 5 mg PO HS PRN 07/11/23 01/03/24 Previous Rx's ?Medication ?Instructions ?Recorded aspirin 81 mg tablet,delayed 81 mg PO BID #60 tabs 07/12/23 release celecoxib 100 mg capsule 100 mg PO BID #60 caps 07/12/23 sennosides 8.6 mg-docusate sodium 1 - 4 tab-cap (1 - 4 x 8.6-50 mg) 07/12/23 50 mg tablet (Senna-S) PO BID PRN constipation #60 tabs Allergies Allergy/AdvReac Type Severity Reaction Status Date / Time No Known Drug Allergies Allergy Verified 07/08/24 16:47 Review of Systems Status of ROS: Reports: 10 or more systems reviewed and unremarkable except as noted in History and below [facility] Medical History Neuropathy ?G62.9 - Polyneuropathy, unspecified (ICD-10) Hyperlipidemia ?E78.5 - Hyperlipidemia, unspecified (ICD-10) BPH (benign prostatic hyperplasia) ?N40.0 - Benign prostatic hyperplasia without lower urinary tract symptoms (ICD-10) Depression with anxiety ?F41.8 - Other specified anxiety disorders (ICD-10) H/O malignant neoplasm of skin ?Z85.828 - Personal history of other malignant neoplasm of skin (ICD-10) History of GI bleed ?Z87.19 - Personal history of other diseases of the digestive system (ICD-10) 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 ?M25.869 - Other specified joint disorders, unspecified knee (ICD-10) ?Z96.659 - Presence of unspecified artificial knee joint (ICD-10) Olecranon bursitis of right elbow ?M70.21 - Olecranon bursitis, right elbow (ICD-10) Osteoarthritis of carpometacarpal (CMC) joint of both thumbs ?M18.0 - Bilateral primary osteoarthritis of first carpometacarpal joints (ICD-10) Trigger finger, left middle finger ?M65.332 - Trigger finger, left middle finger (ICD-10) Acute perichondritis of left external ear ?H61.012 - Acute perichondritis of left external ear (ICD-10) Abscess of right lower extremity ?L02.415 - Cutaneous abscess of right lower limb (ICD-10) MRSA (methicillin resistant staph aureus) culture positive ?Z22.322 - Carrier or suspected carrier of Methicillin resistant Staphylococcus aureus (ICD-10) Diverticulitis ?K57.92 - Diverticulitis of intestine, part unspecified, without perforation or abscess without bleeding (ICD-10) Cellulitis ?L03.90 - Cellulitis, unspecified (ICD-10) GERD (gastroesophageal reflux disease) ?K21.9 - Gastro-esophageal reflux disease without esophagitis (ICD-10) Hypertension ?I10 - Essential (primary) hypertension (ICD-10) Sleep apnea ?G47.30 - Sleep apnea, unspecified (ICD-10) Surgical History Status post evacuation of hematoma ?Z98.890 - Other specified postprocedural states (ICD-10) History of lumbar laminectomy ?Z98.890 - Other specified postprocedural states (ICD-10) 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) ?Z96.652 - Presence of left artificial knee joint (ICD-10) H/O hernia repair ?Z98.890 - Other specified postprocedural states (ICD-10) ?Z87.19 - Personal history of other diseases of the digestive system (ICD-10) History of appendectomy ?Z90.49 - Acquired absence of other specified parts of digestive tract (ICD- 10) S/P right knee arthroscopy (07/07/06) ?Z98.890 - Other specified postprocedural states (ICD-10) History of carpal tunnel surgery of left wrist (05/22/09) ?Z98.890 - Other specified postprocedural states (ICD-10) S/P arthroscopy of right shoulder (06/23/11) ?Z98.890 - Other specified postprocedural states (ICD-10) Status post total right knee replacement (06/27/13) ?Z96.651 - Presence of right artificial knee joint (ICD-10) History of carpal tunnel surgery of right wrist (11/07/13) ?Z98.890 - Other specified postprocedural states (ICD-10) Social History What is your current living situation?: I presently have a place to live Problems where you live: no known problems In the past 12 months, utilities in danger of being shut off: no In the past 12 mos, have been you worried that your food would run out before you had money to buy more?: never true In the past 12 mos, the food you bought just didn't last and you didn't have money to buy more?: never true Highest level of school completed/degree received: high school graduate Smoking Status: Never smoker Do you use any of these nicotine containing products: None Second hand tobacco smoke exposure: No How often do you have a drink containing alcohol: 4 or more times a week Alcohol type: wine How many standard drinks containing alcohol do you have on a typical day: 1 or 2 How often do you have six or more drinks on one occasion: Never AUDIT-C Alcohol total score: 4 Non-prescribed substance use: denies use Caffeine: Yes (coffee) How often does anyone, including family, friends and others, physically hurt you : never How often does anyone, including family, friends and others, insult or talk down to you: never How often does anyone, including family, friends and others, threaten you with harm: never How often does anyone, including family, friends and others, scream or curse at you: never service: Yes Exam Narrative: Exam Narrative: Vital signs reviewed In general, alert, nontoxic elderly male. Looks reasonably comfortable. Head: Normocephalic, atraumatic. Eyes: Sclera clear. Pupils equal and reactive. ENT: Mucous membranes moist. Neck: Supple without adenopathy. Heart: Regular rate and rhythm without murmur. Lungs: Clear. No increased work of breathing, crackles or wheezes. Abdomen: Soft, mildly distended, some epigastric and upper abdominal tenderness without rebound guarding or rigidity. Extremities: Well perfused, pulses intact. No significant edema. Neurologic: Alert, conversant. Speech fluent, face symmetric. Moves all extremities equally. Skin: Warm, dry well perfused. Affect: Normal. Const: Vital Signs, click to edit/add: Vital Signs - 24 hr 07/08/24 16:47 07/08/24 17:26 07/08/24 17:30 Temperature 98.7 F Pulse Rate 91 92 Pulse Rate [Pulse Oximeter] 99 Respiratory Rate 16 Blood Pressure [Ri ght Upper Arm] 142/86 H Pulse Oximetry 94 90 90 Oxygen Delivery Me thod Room Air 07/08/24 17:45 Temperature Pulse Rate 89 Pulse Rate [Pulse Oximeter] Respiratory Rate Blood Pressure [Ri ght Upper Arm] Pulse Oximetry Oxygen Delivery Me thod Documenting provider has reviewed patient's vital signs: yes Course Course ED Course: Patient presents with abdominal pain and diarrhea, symptoms may be viral but given age and abdominal pain and tenderness will check some labs to also look for pancreatitis, diverticulitis, consider gastritis, ulcer disease, colitis. He notes that he has not been able to drink anything today so will give some IV fluids as well. CT scan of the abdomen and pelvis. By my review, CT scan does not show any significant inflammatory changes, obstruction, free air or other acute findings. Final radiology read notable for fluid in the intestine consistent with diarrheal illness, no other significant findings. Report linked below. Labs are notable for a white blood cell count of 11.2, hemoglobin of 15. He does have a left shift with 93% neutrophils. Metabolic panel is normal, BUN is 20, creatinine 1.2. Blood sugar 126. LFTs are normal, lipase is 87. CRP is 0.5. He does not describe any red flag symptoms in terms of the diarrhea, no recent antibiotics and no blood in the stools. I think it is reasonable for him to use something like Imodium for diarrheal treatment if he would like. He did have a L of saline here, has not had any vomiting or diarrhea while here. He is comfortable with discharge home. Reviewed reasons to return, recommend primary care follow-up for diarrhea that persists beyond 7-10 days. Vital Signs Vital signs: Initial Vital Signs Temperature 98.7 F 07/08/24 16:47 Temperature Source Temporal Artery Scan 07/08/24 16:47 Pulse Rate 99 07/08/24 16:47 Respiratory Rate 16 07/08/24 16:47 Blood Pressure 142/86 H 07/08/24 16:47 Blood Pressure Mean 104 07/08/24 16:47 Blood Pressure Position High-Fowlers 07/08/24 16:47 Pulse Oximetry 94 07/08/24 16:47 Oxygen Delivery Method Room Air 07/08/24 16:47 Vital Signs Temperature 98.7 F 07/08/24 16:47 Pulse Rate 99 07/08/24 16:47 Respiratory Rate 16 07/08/24 16:47 Blood Pressure 142/86 H 07/08/24 16:47 Pulse Oximetry 94 07/08/24 16:47 Oxygen Delivery Method Room Air 07/08/24 16:47 Temperature 98.7 F 07/08/24 16:47 Pulse Rate 89 07/08/24 17:45 Respiratory Rate 16 07/08/24 16:47 Blood Pressure 142/86 H 07/08/24 16:47 Pulse Oximetry 90 07/08/24 17:30 Oxygen Delivery Method Room Air 07/08/24 16:47 Medications Administered Medications: Discontinued Medications Generic Name Dose Route Start Last Admin Trade Name Freq PRN Reason Stop Dose Admin Sodium Chloride 1,000 mls @ 1,000 mls/hr 07/08/24 17:00 07/08/24 17:57 0.9 % Sodium Chloride 1000 Ml IV 07/08/24 17:59 Infused .Q1H SALONI Infusion Ondansetron HCl 4 mg 07/08/24 16:51 07/08/24 17:12 Ondansetron 2 Mg/Ml Inj IVP 07/08/24 16:52 4 mg ONCE ONE Administration Medical Decision Making Lab Data Labs: Lab Results 07/08/24 Range/Units 17:10 WBC 11.18 H (4.50-11.00) K/uL RBC 4.68 (4.30-5.90) m/uL Hgb 15.0 (13.5-17.5) gm/dL Hct 44.4 (37.0-53.0) % MCV 95 (80-100) fL MCH 32 (26-34) pg MCHC 34 (32-36) gm/dL RDW Coeff of Nancy 12.0 (11.5-15.5) % Plt Count 229 (140-440) K/uL Neut % (Auto) 92.6 H (42.0-72.0) % Lymph % (Auto) 3.0 L (20-44) % Moore % (Auto) 3.1 (0.0-11.0) % Eos % (Auto) 1.0 (0.0-7.0) % Baso % (Auto) 0.1 (0.0-3.0) % Neut # (Auto) 10.40 H (1.7-7.0) K/uL Lymph # (Auto) 0.30 L (0.90-2.90) K/uL Moore # (Auto) 0.30 (0.00-0.90) K/UL Eos # (Auto) 0.10 (0.00-0.50) K/uL Baso # (Auto) 0.00 (0.00-0.30) K/uL Abs Immat Gran (auto) 0.00 (0.00-0.30) K/uL Imm/Tot Granulo (auto) 0.2 % Sodium 140 (135-149) mmol/L Potassium 4.3 (3.6-5.1) mmol/L Chloride 108 (96-114) mmol/L Carbon Dioxide 23 (20-32) mmol/L Anion Gap 9 (7-15) mEq/L BUN 20 (7-30) mg/dL Creatinine 1.2 (0.5-1.5) mg/dL Estimated Creat Clear 50.69 Estimated GFR 61 ml/min Glucose 126 H (60-115) mg/dL Lactate 0.8 (0.5-1.9) mmol/L Calcium 9.5 (8.4-10.6) mg/dL Total Bilirubin 0.6 (0.1-1.5) mg/dL Direct Bilirubin 0.2 (0.0-0.5) mg/dL AST 20 (12-35) U/L ALT 14 (4-50) U/L Alkaline Phosphatase 59 (40-150) U/L C-Reactive Protein 0.5 (0.5-1.0) mg/dL Total Protein 7.8 (6.0-8.3) g/dL Albumin 4.7 (3.3-5.0) g/dL Lipase 87 (23-300) U/L Discharge Plan Discharge Clinical Impression: Diarrhea Patient Disposition: Home, Self-Care Instructions: Acute Diarrhea (ED) Additional Instructions: Your tests today are all reassuring. Your CT scan and labs are normal. It is okay for you to use couple of doses of Imodium if you would like for treatment of the diarrhea. If you have more severe abdominal pain, fevers, bloody stools or other worsening, return to the ER. Diarrhea can last 7-10 days. If it persists beyond that, I would recommend primary care follow-up for further pearl ting. Prescriptions: No Action gabapentin 100 mg capsule 200 mg PO BID Patient Comments: finasteride 5 mg tablet 5 mg PO DAILY Patient Comments: omeprazole 20 mg capsule,delayed release(DR/EC) 20 mg PO DAILY Patient Comments: buspirone 10 mg tablet 20 mg PO BID Patient Comments: tamsulosin 0.4 mg capsule 0.8 mg PO DAILY Patient Comments: citalopram 20 mg tablet 20 mg PO DAILY atorvastatin 10 mg tablet 10 mg PO HS Patient Comments: losartan 50 mg tablet 50 mg PO DAILY albuterol sulfate 90 mcg/actuation HFA aerosol inhaler 2 inh inhalation Q4H PRN Patient Comments: propranolol 20 mg tablet 20 mg PO BID PRN ferrous sulfate 324 mg (65 mg iron) tablet,delayed release (DR/EC) 324 mg PO DAILY acetaminophen 650 mg tablet extended release 1,300 mg PO Q8H PRN cyanocobalamin (vitamin B-12) 1,000 mcg tablet 1,000 mcg PO DAILY zolpidem 5 mg tablet 5 mg PO HS PRN sennosides-docusate sodium [Senna-S] 8.6-50 mg tablet 1 - 4 tab-cap PO BID PRN (Reason: constipation) Qty: 60 0RF Rx Instructions: Hold medication if experiencing loose stools. aspirin 81 mg tablet,delayed release (DR/EC) 81 mg PO BID Qty: 60 0RF Rx Instructions: Medication to help prevent blood clots postoperatively; take TWICE daily. celecoxib 100 mg capsule 100 mg PO BID Qty: 60 0RF Follow Up/Referrals: Sathish Segura MD [Primary Care Provider] - Stand Alone [facility]: [facility] Info Inst[facility]
[2024-07-08] MEDS: 0.9 % SODIUM CHLORIDE 1000 ml 1,000 ML IV (17:13)
[2024-07-08 17:18] LABS: Lactate Sepsis w/Reflex* 0.8 mmol/L (0.5-1.9)
[2024-07-08 17:22] LABS: Basophils Percent Auto 0.1 % (0.0-3.0); Hematocrit 44.4 % (37.0-53.0); Immature Granulocytes Pct Auto 0.2 %; Mean Corpuscular HGB Conc 34 gm/dL (32-36); Mean Corpuscular Hemoglobin 32 pg (26-34); Mean Corpuscular Volume 95 fL (80-100); Monocytes Percent Auto 3.1 % (0.0-11.0); Neutrophils Percent Auto 92.6 % (42.0-72.0); Platelet Count* 229 K/uL (140-440); Red Blood Count 4.68 m/uL (4.30-5.90); White Blood Count* 11.18 K/uL (4.50-11.00)
[2024-07-08 17:23] LABS: Slide Review Reflex No
[2024-07-08 17:26] VITALS: PULSE 91; O2SAT 90
[2024-07-08 17:30] VITALS: PULSE 92; O2SAT 90
[2024-07-08 17:35] LABS: Albumin* 4.7 g/dL (3.3-5.0); Chloride* 108 mmol/L (96-114); Potassium* 4.3 mmol/L (3.6-5.1); Sodium* 140 mmol/L (135-149)
[2024-07-08 17:37] LABS: Creatinine* 1.2 mg/dL (0.5-1.5); Est. Creatinine Clearance* 50.69; Estimated Glomerular Filt Rate 61 ml/min
[2024-07-08 17:38] LABS: Alkaline Phosphatase* 59 U/L (40-150); Anion Gap 9 mEq/L (7-15); Aspartate Amino Transferase* 20 U/L (12-35); Bilirubin Direct* 0.2 mg/dL (0.0-0.5); Bilirubin Total* 0.6 mg/dL (0.1-1.5); Blood Urea Nitrogen* 20 mg/dL (7-30); Carbon Dioxide* 23 mmol/L (20-32); Glucose* 126 mg/dL (60-115); Lipase* 87 U/L (23-300); Total Protein* 7.8 g/dL (6.0-8.3)
[2024-07-08 17:39] LABS: Alanine Aminotransferase* 14 U/L (4-50); Calcium* 9.5 mg/dL (8.4-10.6)
[2024-07-08 17:41] LABS: C Reactive Protein* 0.5 mg/dL (0.5-1.0)
--- OUTSIDE RECORDS SUMMARY | 2024-07-08 17:43 | XMS_ITS | Clinical Summary ---
Author Organization [facility] Address [address] [address] Phone Care Team Providers Care Printer Technician Name Role Phone Unavailable Primary Care Provider Unavailabl e Allergies No known active allergies Medications busPIRone (Buspar) 10 MG tablet Take 20 mg by mouth two times a day. 1 Active citalopram (CeleXA) 20 MG tablet Take 20 mg by mouth every morning. 1 Active finasteride (Proscar) 5 MG tablet Take 5 mg by mouth every morning. 1 Active tamsulosin (Flomax) 0.4 MG 24 hour capsule Take 0.8 mg by mouth. 1 Active pantoprazole (Protonix) 40 MG delayed-release tablet Take 40 mg by mouth one time a day. 2 Active atorvaSTATin (Lipitor) 10 MG tablet Take 10 mg by mouth one time a day. 1 Active triamcinolone acetonide (Kenalog) 0.1 % creamIndication s:Rash Apply topically two times a day. 45 g 2 Active Social History Tobacco Use Types Packs/Day Years Used Date Smoking Tobacco: Former Cigarettes 0.5 10 Smokeless Tobacco: Former Tobacco Cessation:Counseling Given: Yes PHQ-2 Answer Date Recorded PHQ-2 Total 0 01/18/2022 Sex and Gender Information Value Date Recorded Sex Assigned at Not on file Legal Sex Male 11:38 AM CDT Gender Identity Not on file Sexual Orientation Not on file Obstetrics History Last Filed Vital Signs Vital Sign Reading Time Taken Comments Blood Pressure 100/54 01/18/2022 12:03 PM CDT Pulse 92 01/18/2022 12:03 PM CDT Temperature 36 C (96.8 F) 01/18/2022 12:03 PM CDT Respiratory Rate 16 01/18/2022 12:0 3 PM CDT Oxygen Saturation 96% 01/18/2022 12: 03 PM CDT Inhaled Oxygen Concentration - - Weight 93.4 kg (205 lb 14.6 oz) 022 12:03 PM CDT Height - - Body Mass Index - - Plan of Treatment Health Maintenance Due Date Last Done Comments MEDICARE AWV 1944 PERTUSSIS (Standing Order) 1963 TETANUS (Standing Order) 1963 Shingrix (Zoster recombinant ) vaccine (Standing Order) (1 of 2) 1994 Pneumococcal Vaccine: 65+ yr s (Standing Order) (1 of 1 - PCV) 2009 RSV Vaccination (60+ yrs) (Abrysvo/Arexvy) (1 - 1-dose 75+ series) 2019 COVID-19 Vaccine ( - 2023-2 5 season) 2024 Influenza Vaccine Seasonal (Standing Order) (#1) 2024 HPV Vaccine (Standing Order) Aged Out No longer eligible based on patient's age to complete this topic Hepatitis B Vaccine (Standin g Order) Aged Out No longer eligible b ased on patient's age to complete this topic Insurance [employer] [employer] [place]UE/[place] BLUE MEDICARE COST PART A&B
--- OUTSIDE RECORDS SUMMARY | 2024-07-08 17:43 | XMS_ITS | Clinical Summary ---
Author Organization [facility] Address [place], [place] [address] Care Team Providers Care Print Operator Name Role Phone Sathish Segura MD Primary Care Provider [phone] Allergies No known active allergies Medications acetaminophen SR (Tylenol Arthritis Pain) 650 mg Extended-Releas e tablet Take 2 Tablets (1,300 mg) by mouth every 8 hours if needed. Max acetaminophen dose: 4000mg in 24 hrs. 0 3 Active albuterol HFA (PRO-AIR; VENTOLIN; PROVENTIL) 90 mcg/actuation inhalerIndicati ons:Productive cough,Chronic obstructive pulmonary disease, unspecified COPD type (HC) Inhale 1-2 Puffs by mouth every 4 hours if needed for Shortness Of Breath or Wheezing. 1 Each 2 3 Active atorvastatin (LIPITOR) 10 mg tabletIndicatio ns:Lacunar infarction (HC) Take 1 Tablet (10 mg) by mouth once daily. 90 Tablet 3 4 Active busPIRone (BUSPAR) 10 mg tabletIndicatio ns:Anxiety Take 2 Tablets (20 mg) by mouth two times daily. 360 Tablet 3 4 Active citalopram (CELEXA) 20 mg tabletIndicatio ns:Anxiety Take 1 Tablet (20 mg) by mouth every morning. 90 Tablet 3 4 Active gabapentin (NEURONTIN) 300 mg capsuleIndicati ons:Peripheral sensory neuropathy Take 1 Capsule (300 mg) by mouth two times daily. 180 Capsule 3 4 Active finasteride (PROSCAR) 5 mg tabletIndicatio ns:BPH without urinary obstruction Take 1 Tablet (5 mg) by mouth every morning. 90 Tablet 3 4 Active tamsulosin (FLOMAX) 0.4 mg capsuleIndicati ons:BPH without urinary obstruction Take 2 Capsules (0.8 mg) by mouth once daily after a meal. 180 Capsule 3 4 Active propranoloL (INDERAL) 20 mg tabletIndicatio ns:Anxiety state Take 1 Tablet (20 mg) by mouth two times daily. 30 Tablet 4 Active losartan (COZAAR) 50 mg tabletIndicatio ns:HTN (hypertension) Take 1 Tablet (50 mg) by mouth once daily. 90 Tablet 3 4 Active omeprazole (PRILOSEC) 20 mg Delayed-Release capsuleIndicati ons:Chronic GERD Take 1 Capsule (20 mg) by mouth once daily before a meal. 90 Capsule 3 4 Active CPAPIndications :MANUEL (obstructive sleep apnea) CPAP machine for home use at pressure 8cmw, CPAP mask- mask of choice, fit to comfort one per 3 months; one cushion per month 1 Each 4 Active clobetasol (TEMOVATE) 0.05 % creamIndication s:Rash Apply topically to affected area(s) two times daily. 30 g 4 Active zolpidem (AMBIEN) 5 mg tabletIndicatio ns:Insomnia, unspecified type Take 0.5-1 Tablets (2.5-5 mg) by mouth at bedtime if needed for Sleep. 30 Tablet 4 Active polyethylene glycol-electrol yte (GOLYTELY) 236-22.74-6.74 -5.86 gram suspensionIndic ations:Encounte r for screening colonoscopy Drink 2 liters the day before the procedure and 2 liters 6 hours prior to procedure Do not start before May 04, 2024. 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 That has been there for about 4 years. It is getting a little worse. He has multiple siblings with the same condition. An EMG 2 years ago showed the presence of polyneuropathy with an unknown etiology. He had laboratory testing at that time for neuropathy that was normal. No diabetes. No multiple myeloma. No electrolyte issues. Sensorineural hearing loss, bilateral 07/31/2014 Basal cell carcinoma, face 11/19/2013 S/P TKR (total knee replacement) 07/02/2013 MANUEL 01/09/2012 AHI-29 01/13/2012 Overview (10/17/2018): Using CPAP Reaction, adjustment, with anxious, depressed mo od 07/15/2011 Insomnia, unspecified 10/15/2009 Mixed hyperlipidemia 07/16/2009 Osteoarthritis of hand 07/16/2009 Overview (07/16/2009): Left #1 CMC joint Family history of malignant neoplasm of gastrointestinal tract 07/10/2009 Overview (05/09/2024): Colonoscopy 07/2009 normal repeat in 5 years Colonoscopy 09/2014 normal repeat in 5 years Colonoscopy 05/2019 diverticulosis, repeat in 5 years Colonoscopy 05/2024 polyp, repeat in 5 years Impaired fasting glucose 05/14/2009 Impotence of organic origin 05/25/2007 Esophageal reflux 05/17/2007 Overview (09/06/2014): EGD 09/2014 normal Encounters Date Type Department Care Team Description 05/11/2024 Orders Only [facility] [address] [place] [address] Frank Sheppard MD 1 scan: (1-Ord) [facility] 05/09/2024 9:26 AM CDT - 05/09/2024 11:59 PM CDT Hospital Encounter Frank Sheppard MD 05/09/2024 Orders Only [facility] [address] [facility] [address] [place] [address] Frank Sheppard MD <No scans attached> 05/09/2024 Surgery [facility] [address] [facility] [address] [place] [address] Frank Sheppard MD Colonoscopy 05/04/2024 8:45 AM CDT Preop Visit [facility] [address] [place] [address] Brielle Moralez DO Pre-Op Exam (05/09/[address] [facility] [address] Sheppard) 05/04/2024 Travel 05/02/2024 Travel 05/02/2024 Telephone [facility] [address] [place] [address] Frank Sheppard MD Appointment Reminder (Colonoscopy on 05/09/2024 at [facility]) 05/01/2024 Telephone [facility] [address] [place] [address] Frank Sheppard MD Appointment (colonoscopy) 04/27/2024 Telephone [facility] [address] [facility] [place] [address] Frank Sehppard MD 04/16/2024 Telephone [facility] [address] [facility], [place] [id number] Frank Sheppard MD Reschedule Colonoscopy from Last 3 Months Immunizations Name Administration Dates Next Due COVID-19 VACCINE SPIKEVAX (M ODERNA 50MCG/0.5ML) 12YO+ PFS 08/16/2023 COVID-19 vaccine (Pfizer-Bio NTech 30mcg/0.3mL) 12YO+ BIVALENT PF, MDV 05/07/2022 COVID-19 vaccine (Pfizer-Bio NTech 30mcg/0.3mL) 12YO+ CECILIA-SUCROSE PF, MDV 12/17/2021 COVID-19 vaccine (Pfizer-Bio NTech 30mcg/0.3mL) PF, MDV 11/12/2020,10/22/2020 Hepatitis A (Adult) 04/22/2006,09/07/2005 Influenza, High-dose Inactivated 018,06/14/2018,06/22/2016,2014,05/07/2014 Influenza, IIV3 (Age 6-35 mos) 05/10/2011,2008 Influenza, IIV3 (Age >=3 years) 05/09/20 13,05/12/2012,05/10/2011,2010,05/14/2009,05/17/2007 Influenza, IIV4 05/23/2019 Influenza, Inactivated AIIV4 (Age 65+ Years) Preserv Free 08/16/2023,05/07/2022,05/18/2021,2019 Influenza, Inactivated IIV3 (Age 65+ Years) Preserv Free 06/14/2018,06/27/2017 Pneumococcal Poly,23-Valent (Pneumovax) 07/16/2009 Pneumococcal conj 13-Valent (Prevnar 13) 01/27/2017 Td (Age >=7 Years) 04/21/2004 Td, Preservative Free (age > = 7 Years) 06/27/2017 Tdap 09/21/2016,09/07/2005 Typhoid (injectable) 07/29/2014,08/04/2010 Zoster (Shingrix-RZV, recombinant) 03/22/2019, Zoster (Zostavax-ZVL, live) 11/06/2007 Family History Medical History Relation Name Comments Diabetes Father Cancer-colon Mother Rectal Ca Anesthesia Problem No Family History Blood Disease No Family History Coronary artery disease No Family History Hypertension No Family History Stroke No Family History Relation Name Status Comments Father Natural Mother Social History Tobacco Use Types Packs/Day Years Used Date Smoking Tobacco: Former Cigarettes 0.5 20 0 08/01/1968 - 08/01/1988 Smokeless Tobacco: Former Chew Quit: 08/01/1988 Tobacco Cessation:Counseling Given: Not Answered Alcohol Use Standard Drinks/Week Comments Not Currently 1 (1 standard drink = 0.6 oz pur e alcohol) few days per week PHQ-2 Answer Date Recorded PHQ-2 TOTAL SCORE 0 09/26/2023 Social Connections Answer Date Recorded Do you often feel lonely or isolated from those around you? 0 08/16/2023 Financial Resource Strain Answer Date R ecorded Difficulty of Paying Living Expenses 3 08/16/2023 Difficulty of Paying Living Expenses Not on file 08/16/2023 Food Insecurity Answer Date Recorded Do you worry your food will run out before you are able to buy more? 1 08/16/2023 Transportation Needs Answer Date Record ed Does lack of transportation keep you from medica l appointments? 1 08/16/2023 Does lack of transportation keep you from work, meetings or getting things that you need? 1 08/16/2023 Housing Stability Answer Date Recorded What is your housing situation today? 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 Not on file Not on file Not on file Obstetrics History Last Filed Vital Signs Vital Sign Reading Time Taken Comments Blood Pressure 131/65 05/04/2024 8:51 AM CDT Pulse 81 05/04/2024 8:51 AM CDT Temperature 36.4 C (97.6 F) 01/12/2022 9:29 AM CDT Respiratory Rate 16 07/01/2020 10:27 AM [employer] Oxygen Saturation 97% 05/04/2024 8:51 AM CDT Inhaled Oxygen Concentration - - Weight 95.5 kg (210 lb 9.6 oz) 05/04/2024 8:51 A M CDT Height 178 cm (5' 10.08) 05/04/2024 8:51 AM CDT Body Mass Index 30.15 05/04/2024 8:51 AM CDT Plan of Treatment Health Maintenance Due Date Last Done Comments RSV vaccine for adults or (1 - 1-dose 75+ series) 2019 COVID-19 vaccine series ( season) 2024 08/16/2023, 05/07/2022, 12/17/2021, Additional history exists Influenza for age 65+ 04/01/2024 08/16/2023 , 05/07/2022, 05/18/2021, Additional history exists Depression screening for age 12+ 09/26/2024 09/26/2023, 09/14/2022, 05/07/2022, Additional history exists Medicare Wellness for age 65+ 09/26/2024, 09/14/2022, 05/18/2021, Additional history exists BMI (ht and wt on same day) for age 18+ 05/04/2025 05/04/2024, 12/29/2023, 09/26/2023, Additional history exists Tetanus booster 06/27/2027 06/27/2017, 09/02, 09/07/2005, Additional history exists Tdap Completed 09/21/2016, 09/07/2005 Pneumococcal series for age 65+ Completed 7, 07/16/2009 Zoster (shingles) series for age 50+ Completed 03/22/2019, 11/01/2018, 11/06/2007 Procedures Procedure Name Priority Date/Time Associated Diagnosis Comments COLONOSCOPY SCREENING Routine 05/09/2024 12:00 AM CDT Family history of malignant neoplasm of gastrointestinal tract POTASSIUM Routine 05/04/2024 9:40 AM CDT Pre-op exam SURGICAL PROCEDURE (TYPE PROCEDURE DESCRIPTION BELOW) Encounter for screening colonoscopy from Last 3 Months Results * COLONOSCOPY SCREENING (05/09/2024 12:00 AM CDT) Frank Sheppard MD GI PROCEDURE ORD Final Re sult * POTASSIUM (05/04/2024 9:40 AM CDT) POTASSIUM 4.6 3.5 - 5.3 mmol/L [facility] Blood BLOOD SPECIMEN / Unknown 05/04/2024 9:40 AM CDT 05/04/2024 9:41 AM CDT Narrative [facility] - 05/05/2024 6:06 AM CDT FASTING:UNKNOWN FASTING: UNKNOWN Brielle Moralez DO CHEMISTRY Final Resu lt [facility] [address] [place] [address], [facility] [address] [place] [address] from Last 3 Months Insurance [employer] [place] [employer] MR PB ONLY MEDICARE PART A HB ONLY MEDICARE PART B HB ONLY [employer] [place] [employer] BL[employer] HB ONLY Care Teams Print Operator Relationship Specialty Start Date End Date Sathish Segura MD [address] [place] [address] PCP - General Family Practice 05/09/13
[2024-07-08 17:45] VITALS: PULSE 89
== END 2024-07-08 19:22 | disposition home or self-care (01) ==
PROVIDERS: Emergency Provider Emergency Medicine; PCP Surgery
DX: R19.7 Diarrhea, unspecified (principal)
CPT/HCPCS: 36415; 74177; 80048; 80076; 83605; 83690; 85025; 86140; 93005; 99284; 99285; J2405; J7030; Q9967

== ENCOUNTER 2025-01-29 08:30 | Outpatient (RCR) | payer MEDICARE, BC, SELFPAY | END 2025-01-29 13:36 | disposition home or self-care (01) | PROVIDERS: PCP Surgery; Visit Provider Surgery | DX: M19.041 Primary osteoarthritis, right hand (principal); M19.042 Primary osteoarthritis, left hand; Z51.89 Encounter for other specified aftercare | CPT/HCPCS: 97035; 97110; 97140; 97165; 97530; 97535; X5282 ==